=== PATIENT | male | born 1975 | race Asian ===

== ENCOUNTER 2022-10-11 21:34 | Emergency (ER) | payer MEDICAID ==
[~2022-10-11] VITALS: Ht 167.6 cm; Wt 61.4 kg
[2022-10-12] MEDS ORDERED: DiphenhydrAMINE HCL 50 MG CAPSULE PO ONE (00:30)
[2022-10-12] MEDS ORDERED: DIPH50 PO (00:33)
[2022-10-12 01:00] VITALS: BP 119/69
== END 2022-10-12 01:08 | disposition home or self-care (01) ==
LOC: EMS 21:37
DX: T78.40XA Allergy, unspecified, initial encounter (principal); R21 Rash and other nonspecific skin eruption; X58.XXXA Exposure to other specified factors, initial encounter
CPT/HCPCS: 99282; Z7502; Z7610